=== PATIENT | female | born 1975 | race Caucasian/White ===

== ENCOUNTER → 2017-05-16 | Outpatient (CLI) | payer OTHER ==
--- NOTE | 2017-05-16 14:57 | PE ---
EXAMINATION TYPE: PET CT fusion skull to thigh DATE OF EXAM: 05/16/2017 COMPARISON: NONE HISTORY: Newly diagnosed colon cancer on biopsy April 24 TECHNIQUE: Following the intravenous administration of 11.55 mCi of F-18 FDG, whole body images are performed from the skull base to the midthigh. Images are reviewed on the computer in the coronal, a xial, and sagittal planes. Reconstructed rotating images are created on independent workstation and reviewed on the computer. A localization and attenuation correction CT is performed in conjunction with the PET scan. SCAN: Initial Scan FINDINGS: SKULL BASE AND NECK: No suspicious hypermetabolic uptake is seen in the neck to suggest metastatic d isease. CHEST, MEDIASTINUM, AND HILAR REGION: No suspicious hypermetabolic uptake is seen in the thorax. ABDOMEN AND PELVIS: There is suspicious hypermetabolic uptake near sigmoid rectal junction on image 2 04 with max SUV of 14.34 likely corresponds to level of biopsy-proven neoplasm. Length of colon of ab normal uptake is approximately 4 cm on coronal and sagittal images. There is no additional abnormal hypermetabolic uptake to suggest metastatic disease in the abdomen or pelvis. OSSEOUS STRUCTURES: No suspicious hypermetabolic uptake is seen in the osseous structures. OTHER CT: Few colonic diverticula are seen in the proximal sigmoid colon. There is mild facet arthrop athy in the lower lumbar spine. IMPRESSION: Nonspecific hypermetabolic uptake at the sigmoid rectal junction likely corresponds to re cently biopsy-proven neoplasm. Clinical and colonoscopy correlation advised. No additional areas of a bnormal hypermetabolic uptake to suggest metastatic disease are identified.
== END | disposition home or self-care (01) ==
LOC: RADPETMAIN 12:24
PROVIDERS: ATTEND Internal Medicine Hematology & Oncology
DX: C18.9 Malignant neoplasm of colon, unspecified (principal)
CPT/HCPCS: 78815; A9552